=== PATIENT | male | born 1960 | race Caucasian/White ===

== ENCOUNTER 2017-10-22 18:31 | Emergency (ER) | payer SELFPAY ==
[~2017-10-22] VITALS: Ht 172.7 cm; Wt 84.0 kg
[2017-10-23 00:38] VITALS: BP 100/62
== END 2017-10-23 01:33 | disposition home or self-care (01) ==
LOC: ED 10-23 00:55
DX: F10.220 Alcohol dependence with intoxication, uncomplicated (principal); F17.200 Nicotine dependence, unspecified, uncomplicated
CPT/HCPCS: 99283

== ENCOUNTER 2017-10-23 17:43 | Emergency (ER) | payer SELFPAY ==
[~2017-10-23] VITALS: Ht 165.1 cm; Wt 84.0 kg
[2017-10-23] MEDS ORDERED: ONDANSETRON 2MG/ML, 2ML IVPush ONE (18:30)
[2017-10-23] MEDS ORDERED: SODIUM CHLORIDE 0.9% 1,000ML IVBOLUS ONE (18:30)
[2017-10-23 18:41] LABS: ALANINE AMINOTRANSFERASE 84 U/L (12-78); ALBUMIN 3.4 g/dL (3.4-5.0); ANION GAP 11 mmol/L (5-15); CALCIUM 7.8 mg/dL (8.5-10.1); CHLORIDE 98 mmol/L (98-107)
[2017-10-23 18:45] LABS: ALKALINE PHOSPHATASE 94 U/L (45-117); BILIRUBIN,TOTAL 0.2 mg/dL (0.2-1.0); TOTAL PROTEIN 7.6 g/dL (6.4-8.2); TROPONIN I < 0.015 ng/mL (0.000-0.045)
[2017-10-23 19:21] LABS: MD YES; MEAN CORPUSCULAR HEMOGLOBIN 33.2 pg (27.5-34.5); MEAN CORPUSCULAR VOLUME 94.8 fL (81-97); MEAN PLATELET VOLUME 6.8 fL (7.4-10.4); PLATELET COUNT 86 x10^3/uL (130-400); RED BLOOD COUNT 3.33 x10^6/uL (4.38-5.82); RED CELL DISTRIBUTION WIDTH 16.3 % (9.4-14.8)
[2017-10-23 19:25] LABS: EOS#(MANUAL) 0.12 x10^3/uL (0.0-0.4); EOS% (MANUAL) 3 % (1-7); LYMPH#(MANUAL) 1.35 x10^3/uL (1-3.4); LYMPHS% (MANUAL) 33 % (22-44); MONOS#(MANUAL) 0.33 x10^3/uL (0.3-2.7); MONOS% (MANUAL) 8 % (2-9); SEGS% (MANUAL) 56 % (42-75)
[2017-10-23 19:26] LABS: <PLATELET ESTIMATE> DECREASED; <PLT MORPHOLOGY> NORMAL PLT MORPH
[2017-10-23 19:27] LABS: ANISOCYTOSIS 1+
[2017-10-23 21:50] VITALS: BP 111/66
== END 2017-10-23 21:52 | disposition home or self-care (01) ==
LOC: ED 19:05
DX: R00.2 Palpitations (principal); F10.20 Alcohol dependence, uncomplicated; F17.200 Nicotine dependence, unspecified, uncomplicated
CPT/HCPCS: 36415; 71045; 80053; 84484; 85025; 93005; 96360; 99285; J7030

== ENCOUNTER 2017-10-24 21:49 | Emergency (ER) | payer SELFPAY ==
[~2017-10-24] VITALS: Ht 174 cm; Wt 84.0 kg
[2017-10-24] MEDS ORDERED: LORazepam 1MG TABLET ONE ×2 (22:45→23:31)
[2017-10-24] MEDS ORDERED: LORazepam 1MG TABLET PO ONE ×2 (23:00→23:30)
[2017-10-24] MEDS ORDERED: THIAMINE 100MG TABLET PO ONE (23:00)
[2017-10-24] MEDS ORDERED: THIAMINE 100MG TABLET ONE (23:18)
[2017-10-25 01:52] VITALS: BP 197/90
== END 2017-10-25 01:56 | disposition home or self-care (01) ==
LOC: ED 10-25 01:50
DX: F10.239 Alcohol dependence with withdrawal, unspecified (principal); F17.200 Nicotine dependence, unspecified, uncomplicated
CPT/HCPCS: 99284